=== PATIENT | female | born 1985 | race Caucasian/White ===

== ENCOUNTER 2020-08-10 10:38 | Emergency (ER) | payer OTHER, SELFPAY ==
--- NOTE | 2020-08-10 10:54 | PC.NURSE ---
following registration, prior to triage, pt informed staff she just spoke to her obgyn who instructed her to go to er. stated she does not want to be seen here and would go to er, left at that time.
== END 2020-08-10 10:40 | disposition left against medical advice (07) ==
LOC: EXPBETH 10:45
PROVIDERS: Emergency Provider Nurse Practitioner Family
DX: Z53.21 Procedure and treatment not carried out due to patient leaving prior to being seen by health care provider (principal)
CPT/HCPCS: 99199

== ENCOUNTER 2021-03-31 12:44 | Emergency (ER) | payer OTHER, SELFPAY ==
[2021-03-31 12:48] VITALS: BP 125/63; PULSE 88; RESP 18; TEMP 37.1; O2SAT 99
--- NOTE | 2021-03-31 13:06 | ED.URI ---
HPI - URI/Sore Throat General Chief Complaint: Upper Respiratory Infection Stated Complaint: sore throat Source: patient and RN notes reviewed Limitations: no limitations History of Present Illness HPI Narrative: The obese patient-- a smoker/nondrinker-- has 1/2-week history of sore throat, definite hoarseness and mild nonproductive cough. No fever measured, earache; Covid vaccination , loss of taste or smell, S OB, vomiting/diarrhea, CP Related Data Allergies Allergy/AdvReac Type Severity Reaction Status Date / Time No Known Allergies Allergy Verified 03/31/21 13:01 Review of Systems Review of Systems: Narrative: General/Constitutional: No weight loss,fever Eyes: N0: Redness,discharge Ears/Nose/Throat: No: Epistaxis,ear discharge Respiratory: Denies: Hemoptysis Gastrointestinal: No Vomiting, Bleeding-rectal Skin: No Lumps, eruption Neurologic: No Focal Weakness,Sz Hematologic: Denies: Petechiae/Purpura Psychiatric: No: Suicida ideationl All Other Systems: Reviewed and Negative PMFSH Comments At time of signature, agree with nursing past medical, surgical, social and family history. There is no relevant family history pertinent to the presenting complaint Exam Narrative: Exam Narrative: General Appearance: Well appearing, Well nourished EYE: PERRLA, Conjunctiva clear Ears: Auditory canal normal, TM normal Nose: Rhinorrhea, Mucousal erythema Mouth/Throat: MM moist, Uvula midline, Pharyngeal erythema Neck: Supple, No adenopathy Respiratory: No respiratory distress, Breath sounds equal, Clear to auscultation Cardiovascular: RRR, No JVD Musculoskeletal: Non tender, Normal strength Skin: Warm, Dry Neurological: A&O x3, CN II-XII intact Psychiatric: Normal mood, Normal affect Course Vital Signs Vital signs: Vital Signs Temperature 98.8 F 03/31/21 12:48 Pulse Rate 88 03/31/21 12:48 Respiratory Rate 18 03/31/21 12:48 Blood Pressure 125/63 03/31/21 12:48 Pulse Oximetry 99 03/31/21 12:48 Temperature 98.8 F 03/31/21 12:48 Pulse Rate 88 03/31/21 12:48 Respiratory Rate 18 03/31/21 12:48 Blood Pressure 125/63 03/31/21 12:48 Pulse Oximetry 99 03/31/21 12:48 Discharge Plan Discharge Clinical Impression: Cough, Odynophagia Patient Disposition: Home, Self-Care Condition: Stable Instructions: Acute Bronchitis (ED) Prescriptions: New azithromycin 250 mg tablet See Rx Instructions .ROUTE .COMPLEX Qty: 6 RF: 0 benzonatate [Tessalon Perles] 100 mg capsule 100 mg PO TID Qty: 20 RF: 1 lidocaine HCl [Lidocaine Viscous] 2 % solution 5 ml MUCOUS MEM QID PRN (Reason: pain) Qty: 100 RF: 0 codeine-guaifenesin 10-100 mg/5 mL liquid 7.5 ml PO Q6H PRN (Reason: cough) Qty: 118 RF: 0 Follow-up/Referrals: PHYSICIAN,MATERIALS MANAGEMENT MANAGER [Primary Care Provider] -
== END 2021-03-31 13:17 | disposition home or self-care (01) ==
PROVIDERS: Emergency Provider Emergency Medicine
DX: R05 Cough (principal); R13.10 Dysphagia, unspecified
CPT/HCPCS: 87081; 87880; 99213; G0463

== ENCOUNTER 2021-05-31 19:31 | Emergency (ER) | payer OTHER, SELFPAY ==
[2021-05-31 19:42] VITALS: BP 132/79; PULSE 113; RESP 20; TEMP 36.8; O2SAT 100
--- NOTE | 2021-05-31 19:56 | ED.EYEPROB ---
HPI - Eye Problem General Chief complaint: Eye Problems Stated complaint: right eye Source: patient Mode of arrival: ambulatory Limitations: no limitations History of Present Illness HPI Narrative: Patient is a 35-year-old female who presents complaining of right eye pain. Patient reports getting seasonings often eye last p.m. She reports increased irritation and foreign body sensation today. She denies taking any okus-zdo-sggwbec medications for pain prior to arrival. chief complaint: eye pain Related Data Allergies Allergy/AdvReac Type Severity Reaction Status Date / Time No Known Allergies Allergy Verified 03/31/21 13:01 Review of Systems Review of Systems: CONSTITUTIONAL: Denies fever, chills, or sweats. EYES: Reports right eye pain ENT: Denies rhinorrhea, congestion, sore throat, or otalgia. CARDIOVASCULAR: Denies chest pain, palpitations, or edema. RESPIRATORY: Denies cough or dyspnea. GASTROINTESTINAL: Denies abdominal pain, nausea, vomiting, or diarrhea. GENITOURINARY: Denies dysuria or hematuria. SKIN: Denies rash or itching. MUSCULOSKELETAL: Denies back pain, joint pain, or myalgia. NEUROLOGIC: Denies headache, numbness, dizziness, or weakness. PSYCHIATRIC: Denies anxiety or depression. [facility] Social History Social History (Updated 05/31/21 @ 19:58 by RODNEY Nicholas) Smoking status: Current every day smoker Tobacco type: cigarettes Alcohol intake: current Alcohol use details: Occasional Substance use: never Living arrangements: with family Occupation/Education: occupation Comments At the time of signature, I have reviewed and agree with nursing past medical, surgical, social, and family history unless otherwise noted. Please see nursing chart for further information. There is no relevant family history pertinent to the presenting complaint. Exam Narrative: GENERAL: Well-appearing, well-nourished, and in no acute distress. HEAD: Normocephalic, atraumatic. EYES: EOMI. No redness or drainage. Right conjunctiva and sclera injected. Photophobia noted, clear drainage ENT: Mucous membranes pink and moist. CHEST: No respiratory distress. HEART: Regular rate and rhythm. EXTREMITIES: Normal range of motion. No edema. SKIN: Warm, dry, no rash. NEURO: No focal deficits. Alert and oriented x3. Gait steady. PSYCH: Normal affect. No signs of depression or anxiety. Course Vital Signs Vital signs: Vital Signs Temperature 36.8 C 05/31/21 19:42 Pulse Rate 113 H 05/31/21 19:42 Respiratory Rate 20 05/31/21 19:42 Blood Pressure 132/79 05/31/21 19:42 Pulse Oximetry 100 05/31/21 19:42 Temperature 36.8 C 05/31/21 19:42 Pulse Rate 113 H 05/31/21 19:42 Respiratory Rate 20 05/31/21 19:42 Blood Pressure 132/79 05/31/21 19:42 Pulse Oximetry 100 05/31/21 19:42 Reviewed-patient is informed that they may have pre-hypertension or hypertension based on a blood pressure reading. I recommend the patient call the primary care provider listed on their discharge instructions or a physician of their choice this week to arrange follow-up for further evaluation of possible pre-hypertension or hypertension. Procedures Other Procedure Procedure 1: Other Procedure: Right eye was anesthetized with 1 drop of tetracaine and anesthesia was achieved. The eye was flushed with eyewash. Lid was inverted and examined. Moistened Q-tip was used to sweep underneath the upper eyelid with no foreign bodies resulting. Cornea was dyed with fluorescein and 2 abrasions or ulcerations were noted. Patient tolerated procedure well. MDM - Eye Problem MDM Narrative Medical decision making narrative: Visual acuity is within normal limits. Patient's right eye noted to have 2 corneal abrasions, discussed with patient pain relief as well as using topical ointment as directed. Patient agrees with plan of care. Patient is stable for discharge home with outpatient follow-up as needed. Cri
== END 2021-05-31 20:06 | disposition home or self-care (01) ==
PROVIDERS: Emergency Provider Nurse Practitioner
DX: S05.01XA Injury of conjunctiva and corneal abrasion without foreign body, right eye, initial encounter (principal); X58.XXXA Exposure to other specified factors, initial encounter; F17.210 Nicotine dependence, cigarettes, uncomplicated
CPT/HCPCS: 99213; A9270; G0463

== ENCOUNTER 2021-06-30 11:46 | Emergency (ER) | payer OTHER, SELFPAY ==
--- NOTE | 2021-06-30 11:52 | ED.URI ---
HPI - URI/Sore Throat General Chief Complaint: Upper Respiratory Infection Stated Complaint: Sore Throat/ Fever Time Seen by Provider: 06/30/21 11:53 Source: patient and RN notes reviewed History of Present Illness HPI Narrative: Patient is a 35-year-old female who presents the urgent care with complaints of sore throat, difficulty swallowing, body aches and fever. Patient states that started yesterday after her daughter was diagnosed with strep a couple days ago. Patient states that she is taken ibuprofen for her symptoms. No other acute complaints. No acute distress noted. Patient read the plan of care. Some parts of this dictation were generated by voice recognition software and may contain typographical and/or grammatical inaccuracies. Related Data Allergies Allergy/AdvReac Type Severity Reaction Status Date / Time No Known Allergies Allergy Verified 03/31/21 13:01 Review of Systems Review of Systems: CONSTITUTIONAL: Reports a fever EYES: Denies visual changes, redness, or discharge. ENT: Denies rhinorrhea, congestion, otalgia. reports of sore throat CARDIOVASCULAR: Denies chest pain, palpitations, or edema. RESPIRATORY: Denies cough or dyspnea. GASTROINTESTINAL: Denies abdominal pain, nausea, vomiting, or diarrhea. GENITOURINARY: Denies dysuria or hematuria. SKIN: Denies rash or itching. MUSCULOSKELETAL: Denies back pain, joint pain. Reports of body aches NEUROLOGIC: Denies headache, numbness, or weakness. All other systems reviewed are negative, except as documented in HPI. [facility] Social History Social History (Updated 05/31/21 @ 19:58 by RODNEY Nicholas) Smoking status: Current every day smoker Tobacco type: cigarettes Alcohol intake: current Alcohol use details: Occasional Substance use: never Comments At the time of my signature, I reviewed and agree with the nursing past medical, surgical, social, and family history. There is no relevant family history pertinent to the patient complaint. Exam Narrative: GENERAL: This is a well-nourished, well-developed patient, in no apparent distress. HEAD: normocephalic, atraumatic. EYES: PERRL. Sclera clear/white. Vision is grossly intact. EARS: External ears normal, auditory canals clear and without drainage, TMs normal without perforation. Hearing grossly intact. NOSE: External nose normal with no obvious nasal discharge, nares without redness, no rhinorrhea. THROAT: Mucous membranes moist, moderate erythema to the posterior oropharynx with bilateral exudate and mild to moderate tonsillar edema/erythema. Moderate postnasal drainage. NECK: Neck supple CARDIOVASCULAR: Regular rate and rhythm without murmurs, gallops, or rubs. RESPIRATORY: Clear to auscultation. Breath sounds equal bilaterally. No wheezes, rales, or rhonchi. SKIN: warm, intact with no suspicious lesions or rash, good texture and turgor. NEURO: awake, alert, and oriented to person, place and time. There were no obvious focal neurologic abnormalities. EXTREMITIES: No clubbing, cyanosis, or edema. Course Vital Signs Vital signs: Vital Signs Temperature 98.3 F 06/30/21 11:53 Pulse Rate 112 H 06/30/21 11:53 Respiratory Rate 16 06/30/21 11:53 Blood Pressure 106/67 06/30/21 11:53 Pulse Oximetry 99 06/30/21 11:53 Temperature 98.3 F 06/30/21 11:53 Pulse Rate 112 H 06/30/21 11:53 Respiratory Rate 16 06/30/21 11:53 Blood Pressure 106/67 06/30/21 11:53 Pulse Oximetry 99 06/30/21 11:53 Reviewed MDM - URI/Sore Throat MDM Narrative Medical decision making narrative: Reviewed lab results with the patient. She is aware that strep swab was positive. Advised the patient to complete oral antibiotic regimen as prescribed. Make sure to eat and drink with the medication. Use Tylenol/ibuprofen as needed for fever, body aches and pain. Increase your water intake. Change her toothbrush within 2 to 3 days. Follow-up with your PCP within 3 to 5 days or for worsening
[2021-06-30 11:53] VITALS: BP 106/67; PULSE 112; RESP 16; TEMP 36.8; O2SAT 99
== END 2021-06-30 12:07 | disposition home or self-care (01) ==
PROVIDERS: Emergency Provider Nurse Practitioner Family
DX: J02.0 Streptococcal pharyngitis (principal); F17.210 Nicotine dependence, cigarettes, uncomplicated
CPT/HCPCS: 87880; 99213; G0463

== ENCOUNTER 2024-06-09 17:52 | Emergency (ER) | payer OTHER, SELFPAY ==
[2024-06-09 18:12] VITALS: BP 120/89; PULSE 128; RESP 20; TEMP 36.6; O2SAT 99
--- NOTE | 2024-06-09 19:18 | ED.URI ---
HPI - URI/Sore Throat General Chief Complaint: Upper Respiratory Infection Stated Complaint: cough/ SOB Time Seen by Provider: 06/09/24 18:50 Source: patient, RN notes reviewed and old records reviewed Mode of arrival: ambulatory Limitations: no limitations History of Present Illness HPI Narrative: 38 year old female presents to [facility] care with complaints of 4 day history of cough with some shortness of breath, has felt a little feverish and has noted occasional wheezes. Patient reports that she has some upper back discomfort with her cough, denies any sore throat or any ear pain, states some headache. Patient reports that she has missed 2 days of work and needs work note. Patient also states that she has a little redness and itch to her back and her left arm and requesting ointment of triamcinolone. Patient reports history of past bronchitis has not taken any OTC medication for her symptoms Patient reports had a negative COVID yesterday. MD elicited complaint: cough and other (states some dyspnea,headache, little feverish, some wheezes) Onset (ago): day(s) (4) Consistency: progressively worsening Pain scale (0-10): 3 Description of mucous: clear Treatments prior to arrival: none Related Data Allergies Allergy/AdvReac Type Severity Reaction Status Date / Time No Known Allergies Allergy Verified 06/09/24 18:15 Review of Systems Review of Systems: CONSTITUTIONAL: report malaise,no chills, sweats, reports felt a little feverish. EYES: Denies visual changes, redness, or discharge. ENT: Reports rhinorrhea, congestion, sinus pain, no otalgia and nosore throat. CARDIOVASCULAR: Denies chest pain, palpitations, or edema. RESPIRATORY: Reports cough.? states some dyspnea with cough and exertion, reports some pain to upper back with cough. GASTROINTESTINAL: Denies abdominal pain, nausea, vomiting, diarrhea SKIN: reports some redness and itching on left arm and back no rash noted. MUSCULOSKELETAL: Denies myalgia. NEUROLOGIC: reports headache. All systems reviewed & are unremarkable except as noted in HPI and below PMFSH Past Medical History Medical History Bronchitis Surgical History Surgical History History of back surgery Social History Social History Smoking status: Current some day smoker Tobacco type: cigarettes and e-cigarettes/vaping Alcohol intake: current Alcohol use details: Occasional Substance use: never Living arrangements: with family Occupation/Education: occupation Comments At time of signature, agree with nursing past medical, surgical, social and family history. There is no relevant family history pertinent to the presenting complaint Exam Narrative: GENERAL: Well-appearing, well-nourished, and in no acute distress. HEAD: Normocephalic EYES: PERRLA, conjunctivae clear ENT: Nares clear, turbinates edematous and erythematous, clear discharge. Mucous membranes moist. TM pearly lucero with dull light reflex bilaterally; no tragal tenderness. Oropharynx erythematous without lesions. Tonsils not enlarged and without exudate, no drooling, no hoarseness, no trismus, uvula midline.some post nasal discharge NECK: Supple. No lymphadenopathy CHEST: decreased breath sounds on auscultation, breath sounds equal. No wheezing, rhonchi, rales, or stridor. No respiratory distress, speaks in full sentences.dry hacking cough noted SAO2 99% on room air, no tachypnea noted HEART: Regular rate and rhythm.tachy, No murmur heard. SKIN: Warm, dry, no rash noted states itchy on left arm and back. NEURO: Alert and oriented x3. anxious PSYCH: Normal mood and affect Course Course Emergency Course: Patient is aware of diagnosis, understands and agrees to treatment plan.? Anticipatory guidance given.? Patient agrees to follow
== END 2024-06-09 19:30 | disposition home or self-care (01) ==
PROVIDERS: Emergency Provider Registered Nurse
DX: J06.9 Acute upper respiratory infection, unspecified (principal); F17.210 Nicotine dependence, cigarettes, uncomplicated; F17.290 Nicotine dependence, other tobacco product, uncomplicated
CPT/HCPCS: 99213; G0463

== ENCOUNTER 2025-01-17 13:26 | Emergency (ER) | payer OTHER, SELFPAY ==
--- OUTSIDE RECORDS SUMMARY | 2025-01-17 13:29 | XMS_ITS | Encounter Summary ---
Author Organization [facility] Healthcare Address [address] [place] [address] Care Team Providers Care Nuclear Engineer Name Role Phone No, Physician Primary Care Provider [phone] Encounter Details Date Type Department Care Team (Late st Contact Info) Description 11/20/2019 Telephone [facility] Diagnostic Imaging [address] [place] [address] Teresita Odom MD [address] [place] [address] [place] [id number] Social History Tobacco Use Types Packs/Day Years Used Date Smoking Tobacco: Every Day Cigarettes 0.5 18 Smokeless Tobacco: Never Alcohol Use Standard Drinks/Week Comments No 0 (1 standard drink = 0.6 oz pur e alcohol) Comments Yes Sex and Gender Information Value Date Recorded Sex Assigned at Not on file Legal Sex Female 12:34 PM CDT Gender Identity Not on file Sexual Orientation Not on file documented as of this encounter Plan of Treatment Not on file documented as of this encounter Visit Diagnoses Not on filedocumented in this encounter Additional Health Concerns Infection Onset Date Last Indicated Resolved Time COVID: Suspected 04/14/2022 04/14/2022 04/14/2022 5:11 PM CDT COVID19 04/14/2022 04/14/2022 04/24/2022 3:05 AM CDT documented as of this encounter Care Teams Nuclear Engineer Relationship Specialty Start Date End Date No, Physician PCP - General 08/02/18 documented as of this encounter
--- OUTSIDE RECORDS SUMMARY | 2025-01-17 13:29 | XMS_ITS | Clinical Summary ---
Author Organization [facility] Address [address] [place] [address] Phone Care Team Providers Care Ic Engineer Name Role Phone Provider, None Primary Care Provider Unavailabl e Allergies No known active allergies Medications naproxen (NAPROSYN) 500 MG Tablet Take 1 Tab by mouth 2 times daily (with meals). 30 Tab 9 Active Additional Information Patient not taking.Reported on 08/28/2019 cyclobenzaprine (FLEXERIL) 10 MG Tablet Take 1 Tab by mouth 3 times daily as needed for Muscle spasms. 20 Tab 9 Active Additional Information Patient not taking.Reported on 08/28/2019 albuterol 108 (90 Base) MCG/ACT Aerosol Solution take 2 Puffs by inhalation every 6 hours as needed for Wheezing or Cough. 1 Inhaler 9 Active traMADol (ULTRAM) 50 MG Tablet Take 1 Tab by mouth every 6 hours as needed for Moderate or more severe pain. 15 Tab 9 Active Additional Information Patient not taking.Reported on 08/28/2019 Active Problems No known active problems Family History Medical History Relation Name Comments Diabetes Father Hypertension Father Breast Cancer Maternal Grandmother Heart Disease Mother Hypertension Mother Relation Name Status Comments Father Maternal Grandmother Mother Social History Tobacco Use Types Packs/Day Years Used Date Smoking Tobacco: Every Day Cigarettes 0.5 15 Smokeless Tobacco: Never Tobacco Cessation:Ready to Q uit: No; Counseling Given: Yes Alcohol Use Standard Drinks/Week Comments No 0 (1 standard drink = 0.6 oz pur e alcohol) Sexually Active Control Partners Comments Yes Male Comments Unknown Sex and Gender Information Value Date Recorded Sex Assigned at Not on file Legal Sex Female 10:32 PM CDT Gender Identity Not on file Sexual Orientation Not on file Last Filed Vital Signs Vital Sign Reading Time Taken Comments Blood Pressure 118/75 04/06/2022 2:54 AM CDT Pulse 107 04/06/2022 2:54 AM CDT Temperature 36.8 C (98.2 F) 04/06/2022 12:51 AM CDT Respiratory Rate 19 04/06/2022 2:54 AM CDT Oxygen Saturation 94% 04/06/2022 2:54 AM CDT Inhaled Oxygen Concentration - - Weight 90.7 kg (200 lb) 04/06/2022 12:51 AM CDT Height 172.7 cm (5' 8 ) 04/06/2022 12:51 AM CDT Body Mass Index 30.41 04/06/2022 12:51 AM CDT Plan of Treatment Health Maintenance Due Date Last Done Comments Hepatitis C Virus (HCV) Screening 1985 TdaP Immunization 1985 Hepatitis B Immunization (1 of 3 - 19+ 3-dose series) 2004 Influenza Immunization (#1) 2024 SARS-COV-2 Immunization ( - 2023- season) 2024 Respiratory Syncytial Virus (RSV) Immunization (Adult) (1 - 1-dose 75+ series) 2060 Meningococcal Immunization (ACWY) Aged Out No longer eligible based on patient's age to complete this topic Pneumococcal Immunization Combined Aged Out No longer eligible based on patient's age to complete this topic Rotavirus Immunization Aged Out No lo nger eligible based on patient's age to complete this topic Insurance MEDICAID [employer] Advance Directives * Full Code (Latest Code Status on File) Date Activated Date Inactivated Comments 04/15/2018 5:34 PM 04/15/2018 9:52 PM CPR-Full Sharad atment: FULL ARREST: Attempt Resuscitation/CPR wit intubation and mechanical ventilation. PRE-ARREST: Use entire range of life support measures to stabilize the patient. Care Teams Ic Engineer Relationship Specialty Start Date End Date Provider, None [place] PCP - General 12/20/17
--- OUTSIDE RECORDS SUMMARY | 2025-01-17 13:29 | XMS_ITS ---
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 * Medical History: Objective: * Vitals: Assessment: Plan: * Treatment: * * Electronic signature of Corazon Martell on 01/17/2025 at 01:29 PM CDT Sign off status: Pending * Provider: ANTON Skinner, MACHINE ADJUSTER HELPER, PMHNP-BC Date: 0 11/04/2024 Generated for Printing/Faxing/eTransmitting on: 0 01/17/2025 01:29 PM CDT
[2025-01-17 13:30] VITALS: BP 127/87; PULSE 117; RESP 18; TEMP 36.5; O2SAT 98
--- OUTSIDE RECORDS SUMMARY | 2025-01-17 13:30 | XMS_ITS | Clinical Summary ---
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 antepartum URINE CULTURE Routine 11/11/2024 4:59 PM WELDING SPECIALIST Supervision of other normal , antepartum N. GONORRHOEAE/C. TRACHOMATIS AMPLIFICATION Routine 11/11/2024 4:59 PM WELDING SPECIALIST Supervision of other normal , antepartum PAP AND HIGH RISK HPV, REFLEX TO GENOTYPING Routine 11/11/2024 9:04 AM WELDING SPECIALIST Supervision of other normal , antepartum US OB UNDER 14 WEEKS Schedule Routine, Read Routine (OP Routine) 11/10/2024 3:33 PM WELDING SPECIALIST Encounter to establish gestational age using ultrasound from Last 3 Months Results * POCT OB urine short dip (glucose, protein, ketones) (01/12/2025 9:56 AM CDT) Glucose, ur, POC Negative Negative MG/DL Protein, ur, POC Negative Negative Ketones, ur, POC Negative Negative Lot Number [id number] Urine 01/12/2025 9:56 AM CDT Melanie Newman NP POINT OF CARE TEST ORDERABL ES Final Result * Drugs of Abuse Screen, Urine with Reflex Confirmation (12/15/2024 11:09 AM CDT) Amphetamine, ur Not Detected CutOff 500ng/mL Comment: Interpretive Data - Amphetamines: Samples containing greater than 500 ng/mL d-methamphetamine or other cross-reacting amphetamine compounds are reported as positive. Amphetamine immunoassays are subject to significant false positive rates due to cross-reactivity of non-amphetamine drugs. Confirmatory testing required for definitive results. Current Interpretive Data was last reviewed 2023. Barbiturates, ur Not Detected CutOff 200ng/mL MEGAN Comment: Interpretive Data - Barbiturates: Samples containing greater than 200 ng/mL secobarbital or other cross-reacting barbiturate compounds are reported as positive. False positive and false negative results are possible. Confirmatory testing required for definitive results. Current Interpretive Data was last reviewed 2023. Benzodiazepines, ur Not Detected CutOff 100ng/mL MEGAN Comment: Interpretive Data - Benzodiazepines: Samples containing greater than 100 ng/mL nordiazepam or other cross-reacting compounds are reported as positive. False positive and false negative results are possible. Confirmatory testing required for definitive results. Current Interpretive Data was last reviewed 2023. Cannabinoids, ur Not Detected CutOff 50 ng/mL MEGAN Comment: Interpretive Data - Cannabinoids: Samples containing greater than 50 ng/mL delta-9 THC -COOH or other cross- reacting compounds are reported as positive. False positive and false negative results are possible. Confirmatory testing required for definitive results. Current Interpretive Data was last reviewed 2023. Cocaine, ur Not Detected CutOff 150ng/mL [facility] Comment: Interpretive Data - Cocaine: Samples containing greater than 150 ng/mL benzoylecgonine or other cross- reacting compounds are reported as positive. False positive and false negative results are possible. Confirmatory testing required for definitive results. Current Interpretive Data was last reviewed 2023. Fentanyl, Ur Not Detected CutOff 5 ng/mL [facility] Comment: Interpretive Data - Fentanyl: Samples containing greater than 5 ng/mL norfentanyl, fentanyl, or other cross-reacting fentanyl compounds are reported as positive. False positive and false negative results are possible. Confirmatory testing required for definitive results. Current Interpretive Data was last reviewed 2024. Methadone, ur Not Detected CutOff 300ng/mL [facility] Comment: Interpretive Data - Methadone: Samples containing greater than 300 ng/mL d,l-methadone or other cross-reacting compounds are reported as positive. False positive and false negative results are possible. Confirmatory testing required for definitive results. Current Interpretive Data was last reviewed 2023. Opiates, ur Not Detected CutOff 300ng/mL [facility] Comment: Interpretive Data - Opiates: Samples containing greater than 300 ng/mL morphine or other cross-reacting compounds are reported as positive. False positive and false negative results are possible. Confirmatory testing required for definitive results. Current Interpretive Data was last reviewed 2023. Oxycodone, ur Not Detected CutOff 100ng/mL [facility] Comment: Interpretive Data - Oxycodone: Samples containing greater than 100 ng/mL oxycodone or other cross-reacting compounds are reported as positive. False positive and false negative results are possible. Confirmatory testing required for definitive results. Current Interpretive Data was last reviewed 2023. Phencyclidine, ur Not Detected CutOff 25 ng/mL [facility] Comment: Interpretive Data - Phencyclidine: Samples containing greater than 25 ng/mL phencyclidine or other cross-reacting compounds are reported as positive. False positive and false negative results are possible. Confirmatory testing required for definitive results. Current Interpretive Data was last reviewed 2023. Urine Creatinine 32 mg/dL [facility] Comment: Interpretive Data Urine Creatinine: < 10 mg/dL is extremely dilute = or > 10 but < 20 mg/dL is dilute = or > 20 mg/dL is normal Current Interpretive Data was last revised on 2017. Urine 12/15/2024 11:0 9 AM CDT 12/15/2024 8:16 PM CDT Narrative MEGAN - 12/15/2024 9:01 PM CDT Drug of Abuse screening is performed by immunoassay for medical purposes only. This is not to be used for Pain Management purposes. If Detected, confirmation testing will be performed for Amphetamines, Cocaine, Fentanyl, Methadone, Opiates, Oxycodone or Phencyclidine. Lotus Christiansen MD LAB URINE ORDERABLE S Final Result [facility]GAN [id number] Department [place] [address] * POCT OB urine short dip (glucose, protein, ketones) (12/15/2024 11:03 AM CDT) Glucose, ur, POC Negative Negative MG/DL Protein, ur, POC Negative Negative Ketones, ur, POC Negative Negative Lot Number [id number] Urine 12/15/2024 11:0 3 AM CDT Lotus Christiansen MD POINT OF CARE TEST ORDERABLES Final Result * (ABNORMAL) Differential, auto (12/11/2024 10:17 AM CDT) Neutrophil abs 8.0(H) 1.5 - 6.5 K/cumm Imm gran abs 0.1 0.0 - 0.1 K/cumm [facility] ([place]) Lymphocyte abs 2.3 0.8 - 3.3 K/cumm [facility] ([place]) Monocyte abs 0.5 0.2 - 0.8 K/cumm [facility] ([place]) Eosinophil abs 0.2 0.0 - 0.5 K/cumm [facility] ([place]) Basophil abs 0.0 0.0 - 0.1 K/cumm [facility] ([place]) Neutrophil pct 72.3 % [facility] ([place]) Comment: Interpretive Data Percent cell count reference ranges are not reported, since discordance with absolute values may lead to misinterpretation of CBC data. Current Interpretive Data was last revised on 2017. Imm gran pct 0.5 % [facility] ([place]) Comment: Interpretive Data Percent cell count reference ranges are not reported, since discordance with absolute values may lead to misinterpretation of CBC data. Current Interpretive Data was last revised on 2017. Lymphocyte pct 20.5 % [facility] ([place]) Comment: Interpretive Data Percent cell count reference ranges are not reported, since discordance with absolute values may lead to misinterpretation of CBC data. Current Interpretive Data was last revised on 2017. Monocyte pct 4.5 % [facility] ([place]) Comment: Interpretive Data Percent cell count reference ranges are not reported, since discordance with absolute values may lead to misinterpretation of CBC data. Current Interpretive Data was last revised on 2017. Eosinophil pct 1.9 % [facility] ([place]) Comment: Interpretive Data Percent cell count reference ranges are not reported, since discordance with absolute values may lead to misinterpretation of CBC data. Current Interpretive Data was last revised on 2017. Basophil pct 0.3 % [facility] ([place]) Comment: Interpretive Data Percent cell count reference ranges are not reported, since discordance with absolute values may lead to misinterpretation of CBC data. Current Interpretive Data was last revised on 2017. Blood 12/11/2024 10:1 7 AM CDT 12/11/2024 1:50 PM CDT us Lotus Christiansen MD LAB BLOOD ORDERABLE S Final Result [facility] ([place]) 1 [facility] Department of Laboratories [place], [place] [id number] * HIV 1/2 Antibody plus p24 Antigen Blood (12/11/2024 10:17 AM CDT) HIV 1/2 ab + p24 ag Nonreactive Nonreactive Comment: Nonreactive for HIV-1 antigen and HIV-1/HIV-2 antibodies. No laboratory evidence of HIV infection. If acute HIV infection is suspected, consider testing for HIV-1 RNA. Testing performed by: [facility], [address] [place] [address], [place]., [address] Blood 12/11/2024 10:1 7 AM CDT 12/11/2024 5:15 PM CDT Lotus Christiansen MD LAB MICROBIOLOGY - GENERAL ORDERABLES Final Result [facility] ([place]) 1 [facility] Department [place] [address] * (ABNORMAL) Urinalysis reflex to microscopic (12/11/2024 10:17 AM CDT) Color, ur Yellow Yellow Clarity, ur Turbid(A) Clear [facility] ([place]) Specific gravity, ur 1.016 1.003 - 1.030 [facility] ([place]) pH, urine 6.5 [facility] ([place]) Comment: Interpretive Data U rine pH is affected by diet, medications, systemic acid-base disturbances, and renal tubular function. pH may affect urinary stone formation. For example, urine pH below 6.0 may help reduce the tendency for calcium phosphate stones and pH greater than 6.0 may reduce the tendency for uric acid stone formation. Source: [facility] Current Interpretive Data was last revised on 2017 Protein, ur ql Negative Negative [facility] ([place]) Glucose, ur ql Negative Negative [facility] ([place]) Ketones, ur Negative Negative [facility] ([place]) Bilirubin, ur Negative Negative [facility] ([place]) Blood, ur Negative Negative [facility] ([place]) Urobilinogen, ur <2.0 <2.0 mg/dL [facility] ([place]) Nitrite, ur Negative Negative [facility] ([place]) Leukocyte esterase, ur Negative Negative [facility] ([place]) UA reflex comment Reflex conditions for microscopic UA not met. [facility] ([place]) Urine 12/11/2024 10:1 7 AM CDT 12/11/2024 1:50 PM CDT us Lotus Christiansen MD LAB URINE ORDERABLE S Final Result [facility] ([place]) 1 [facility] [address] * (ABNORMAL) CBC with auto differential (12/11/2024 10:17 AM CDT) WBC 11.1(H) 3.8 - 9.9 K/cumm Hgb 12.6 11.9 - 15.5 g/dL [facility] ([place]) Hct 39.2 35.6 - 45.5 % [facility] ([place]) Plt 289 150 - 400 K/cumm [facility] ([place]) MPV 10.5 9.1 - 12.3 fL [facility] ([place]) RBC 4.42 3.90 - 5.20 M/cumm [facility] ([place]) MCV 88.7 81.3 - 96.4 fL [facility] ([place]) MCH 28.5 27.1 - 33.3 pg [facility] ([place]) MCHC 32.1(L) 32.3 - 35.7 g/dL [facility] ([place]) RDW CV 13.4 11.1 - 14.9 % [facility] ([place]) RDW SD 44.0 35.7 - 48.1 fL [facility] ([place]) NRBC abs 0.00 0.00 - 0.01 K/cumm [facility] ([place]) Blood 12/11/2024 10:1 7 AM CDT 12/11/2024 1:50 PM CDT us Lotus Christiansen MD LAB BLOOD ORDERABLE S Final Result [facility]GAN [facility]ARTEL ([place]) 1 [facility] [place] [address] * Hepatitis C antibody Blood (12/11/2024 10:17 AM CDT) Hep C Ab Nonreactive Nonreactive Comment: Interpretive Data Nonreactive: Antibodies to HCV not detected. Does NOT exclude the possibility of recent exposure to HCV. Equivocal: Equivocal for HCV antibodies. Supplemental molecular testing will be automatically performed to determine infection status in accordance with current CDC screening recommendations. Reactive: Positive for HCV antibodies. This may represent current or past HCV infection. Supplemental molecular testing will be automatically performed to determine current infection status in accordance with current CDC screening recommendations. Interpretive data was last revised on 2019. Testing performed by: [facility], [address] [place] [address], [place]., [address] Blood 12/11/2024 10:1 7 AM CDT 12/11/2024 5:14 PM CDT us Lotus Christiansen MD LAB MICROBIOLOGY - GENERAL ORDERABLES Final Result Performing Organization Address City/State/[facility] Co de Phone Number MEGAN MARTEL ([place]) 1 [facility] [place] [address] * ABO/Rh (12/11/2024 10:17 AM CDT) ABO/Rh O Positive Blood 12/11/2024 10:1 7 AM CDT 12/11/2024 1:50 PM CDT Narrative MEGAN MARTEL ([place]) - 12/11/2024 2:52 PM CDT Has the patient had Daratumumab or Isatuximab in the past 6 months?->Unknown Witnessed by Arlene Bah Lotus Christiansen MD LAB BLOOD BANK TEST ORDERABLES Final Result Performing Organization Address City/[facility] Co de Phone Number MEGAN MARTEL ([place]) 1 [facility] [employer] [place] [address] * (ABNORMAL) Vitamin D 25 hydroxy (12/11/2024 10:17 AM CDT) Vitamin D 25-OH 19(L) 30 - 80 ng/mL Blood 12/11/2024 10:1 7 AM CDT 12/11/2024 1:50 PM CDT Lotus Christiansen MD LAB BLOOD ORDERABLE S Final Result Performing Organization Address City/[facility] Co de Phone Number [facility] ([place]) 1 [facility] [place] [address] * (ABNORMAL) Rubella IgG antibody Blood (12/11/2024 10:17 AM CDT) Rubella IgG Nonreactiv e(A) Comment: Nonreactive: No detectable antibody to rubella. Such individuals are presumed to be uninfected with rubella and to be susceptible to primary infection. Testing performed by: [facility], [address] [place] [address]., [address] Blood 12/11/2024 10:1 7 AM CDT 12/11/2024 4:06 PM CDT us Lotus Christiansen MD LAB MICROBIOLOGY - GENERAL ORDERABLES Final Result Performing Organization Address [facility] Co de Phone Number [facility] ([place]) [address] [place] [address] * RPR Blood (12/11/2024 10:17 AM CDT) Pathologist [facility] RPR Nonreactive Nonreactive Comment:Testing performed by : [facility], [address] [place] [address]., [address] Blood 12/11/2024 10:1 7 AM CDT 12/11/2024 5:14 PM CDT us Lotus Christiansen MD LAB MICROBIOLOGY - GENERAL ORDERABLES Final Result Performing Organization Address City/[facility] Co de Phone Number [facility] ([place]) [address] [place] [address] * Hepatitis B Surface Antigen Blood (12/11/2024 10:17 AM CDT) HepBsAg Nonreactive Nonreactive Comment:Testing performed by : [address] [address] Blood 12/11/2024 10:1 7 AM CDT 12/11/2024 5:14 PM CDT Lotus Christiansen MD LAB MICROBIOLOGY - GENERAL ORDERABLES Final Result MEGAN MARTEL ([place]) 1 [facility] [address] * Antibody screen (12/11/2024 10:17 AM CDT) Erin, indirect, Gel Interpretation Negative ABSC Blood 12/11/2024 10:1 7 AM CDT 12/11/2024 1:50 PM CDT Narrative MEGAN MARTEL ([place]) - 12/11/2024 2:52 PM CDT Has the patient had Daratumumab or Isatuximab in the past 6 months?->Unknown Lotus Christiansen MD LAB BLOOD BANK TEST ORDERABLES Final Result Performing Organization Address [place]/[facility]/ZIP Co de Phone Number MEGAN MARTEL ([place]) 1 [facility] [place] [address] * Urine culture Urine, clean voided (12/11/2024 10:17 AM CDT) Report Final Report: Less than 100,000 colonies/mL (clinically insignificant growth based on current clinical standards) Comment:Testing performed by : [facility], [address] [place] [address] Organism (CLINICALLY INSIGNIFICANT GROWTH MEGAN MARTEL ([place]ARR[place]) Urine, clean voided 12/11/2024 10:17 AM CDT 12/11/2024 5:04 PM CDT Narrative MEGAN MARTEL ([place]) - 12/12/2024 5:57 PM CDT Testing performed by [facility] ([phone]) Lotus Christiansen MD LAB MICROBIOLOGY - GENERAL ORDERABLES Final Result MEGAN MARTEL ([place]) 1 [facility] [place] [address] * Varicella Zoster IgG antibody Blood (12/11/2024 10:17 AM CDT) Pathologist [facility] VZV IgG Reactive Reactive Comment: Reactive: Results suggest response to immunization or prior exposure to the virus. Testing performed by: [facility], [address] [facility], [place]., [address] Blood 12/11/2024 10:1 7 AM CDT 12/11/2024 4:06 PM CDT Lotus Christiansen MD LAB MICROBIOLOGY - GENERAL ORDERABLES Final Result MEGAN MARTEL ([place]ARR[place]) 1 [facility] [address] * Hemoglobin A1c (12/11/2024 10:17 AM CDT) [facility] Hgb A1C 5.2 4.0 - 5.6 % Estimated Average Glucose 103 mg/dL MEGAN MARTEL ([place]ITHARRAL) Comment: The ADA recommends reporting an estimated Average Glucose (eAG) with all Hemoglobin A1c results using the equation derived from a study of 507 normal and diabetic adults. Minority populations were underrepresented and children were not included. (Diabetes Care 31:9534-7044, 2008). The eAG is not equivalent to a fasting glucose. Blood 12/11/2024 10:1 7 AM CDT 12/11/2024 1:50 PM CDT Lotus Christiansen MD LAB BLOOD ORDERABLE S Final Result MEGAN MARTEL ([place]) 1 [facility] [place] [address] * Hexosaminidase A and total (11/21/2024) Pathologist [facility] SCRIBED Mark Sachs negative Blood Lotus Christiansen MD LAB BLOOD ORDERABLE S Final Result * Aaron Disease, DNA (11/21/2024) Pathologist [facility] SCRIBED Aaron negative Lotus Christiansen MD LAB GENETIC TESTING Final Result * DNA AB,HIGH AVIDITY (11/21/2024) [facility] SCRIBED HBV DNA, Qual Negative Lotus Christiansen MD LAB BLOOD ORDERABLE S Final Result * ALPHA-THALASSEMIA EVAL (11/21/2024) [facility] SCRIBED Thalassemia negative Lotus Christiansen MD LAB BLOOD ORDERABLE S Final Result * SMA carrier screen (11/21/2024) [facility] SCRIBED SMA negative Result [facility] Lotus Christiansen MD LAB GENETIC TESTING Final Result * Fragile X mutation (11/21/2024) [facility] SCRIBED Fragile X negative Blood Lotus Christiansen MD LAB BLOOD ORDERABLE S Final Result * Cystic fibrosis diagnostic study (11/21/2024) [facility] SCRIBED CF negative Blood Result [facility] Lotus Christiansen MD LAB BLOOD ORDERABLE S Final Result * High Risk HPV DNA Detection with Genotyping (Molecular component) (11/11/2024 4:59 PM WELDING SPECIALIST) Pathologist [facility] HPV HR 16 Not Detected Not Detected [facility] Comment:Testing performed by : [facility], [address] [place] [address] HPV HR 18 Not Detected Not Detected [facility] Comment:Testing performed by : [facility], [address] [place] [address] HPV HR Non 16/18 Not Detected Not Detected MEGAN Comment: Interpretive Data Nucleic acid amplification for detection of high-risk Human Papilloma virus (HPV) is performed by the Stephon Jessica 6800 HPV test. This assay specifically detects HPV-16 and HPV-18 genotypes. The following HPV genotypes are detected as high-risk HPV: HPV-31, 33, 35, ,39, 45, 51, 52, 56, 58, 59, 66, and 68. This assay has been approved by the [place] Food and Drug Administration for detection of HPV in cervical specimens collected by a physician using an endocervical brush/spatula or cervical broom and placed in the ThinPrep Pap Test PreservCyt collection containers. The performance characteristics of this test have been verified by the [facility] Molecular Infectious Disease laboratory. Correlate with separately reported cytology results, as applicable. Interpretive data last revised 23 Testing performed by: [facility], [address] [place] [address]., [address] Endocervical 11/11/2024 4:59 PM WELDING SPECIALIST 11/12/2024 6:44 PM WELDING SPECIALIST Narrative [facility] - 11/13/2024 6:01 AM WELDING SPECIALIST Clinical history and diagnosis-> Number of vials->1 Testing type->Screening Last menstrual period (date if known)->08/25/2024 Menstrual status-> Lotus Christiansen MD LAB BODY FLUIDS AND STOOLS ORDERABLES Final Result MEGAN [id number] Department [place] [address] [facility] * N. gonorrhoeae/C. trachomatis Amplification Thin prep-Endocervical (11/11/2024 4:59 PM WELDING SPECIALIST) C. trachomatis Not Detected [facility] Comment:Testing performed by : [facility], [address] [place] [address]., [address] N. gonorrhoeae Not Detected MEGAN Comment: Interpretive Data This assay detects Chlamydia trachomatis and Neisseria gonorrhoeae by nucleic acid amplification testing (NAAT). This assay has been cleared by the [facility] Food and Drug administration. The performance characteristics of this test have been verified by the [facility] Molecular Infectious Disease laboratory. The performance characteristics of this test have not been evaluated in individuals less than 14 years of age. Current Interpretive Data was last revised on 2023. Testing performed by: [facility], [address] [place]., [address] Thin prep-Endocervica l (None) 11/11/2024 4:59 PM WELDING SPECIALIST 11/12/2024 6:44 PM WELDING SPECIALIST us Lotus Christiansen MD LAB MICROBIOLOGY - GENERAL ORDERABLES Final Result [facility] [address] Department [place] [address] [facility] * Drugs of Abuse Screen, Urine with Reflex Confirmation (11/11/2024 4:59 PM WELDING SPECIALIST) Amphetamine, ur Not Detected CutOff 500ng/mL Comment: Interpretive Data - Amphetamines: Samples containing greater than 500 ng/mL d-methamphetamine or other cross-reacting amphetamine compounds are reported as positive. Amphetamine immunoassays are subject to significant false positive rates due to cross-reactivity of non-amphetamine drugs. Confirmatory testing required for definitive results. Current Interpretive Data was last reviewed 2023. Barbiturates, ur Not Detected CutOff 200ng/mL MEGAN Comment: Interpretive Data - Barbiturates: Samples containing greater than 200 ng/mL secobarbital or other cross-reacting barbiturate compounds are reported as positive. False positive and false negative results are possible. Confirmatory testing required for definitive results. Current Interpretive Data was last reviewed 2023. Benzodiazepines, ur Not Detected CutOff 100ng/mL MEGAN Comment: Interpretive Data - Benzodiazepines: Samples containing greater than 100 ng/mL nordiazepam or other cross-reacting compounds are reported as positive. False positive and false negative results are possible. Confirmatory testing required for definitive results. Current Interpretive Data was last reviewed 2023. Cannabinoids, ur Not Detected CutOff 50 ng/mL MEGAN Comment: Interpretive Data - Cannabinoids: Samples containing greater than 50 ng/mL delta-9 THC -COOH or other cross- reacting compounds are reported as positive. False positive and false negative results are possible. Confirmatory testing required for definitive results. Current Interpretive Data was last reviewed 2023. Cocaine, ur Not Detected CutOff 150ng/mL [facility] Comment: Interpretive Data - Cocaine: Samples containing greater than 150 ng/mL benzoylecgonine or other cross- reacting compounds are reported as positive. False positive and false negative results are possible. Confirmatory testing required for definitive results. Current Interpretive Data was last reviewed 2023. Fentanyl, Ur Not Detected CutOff 5 ng/mL [facility] [facility] Comment: Interpretive Data - Fentanyl: Samples containing greater than 5 ng/mL norfentanyl, fentanyl, or other cross-reacting fentanyl compounds are reported as positive. False positive and false negative results are possible. Confirmatory testing required for definitive results. Current Interpretive Data was last reviewed 2024. Methadone, ur Not Detected CutOff 300ng/mL [facility] Comment: Interpretive Data - Methadone: Samples containing greater than 300 ng/mL d,l-methadone or other cross-reacting compounds are reported as positive. False positive and false negative results are possible. Confirmatory testing required for definitive results. Current Interpretive Data was last reviewed 2023. Opiates, ur Not Detected CutOff 300ng/mL [facility] Comment: Interpretive Data - Opiates: Samples containing greater than 300 ng/mL morphine or other cross-reacting compounds are reported as positive. False positive and false negative results are possible. Confirmatory testing required for definitive results. Current Interpretive Data was last reviewed 2023. Oxycodone, ur Not Detected CutOff 100ng/mL [facility] Comment: Interpretive Data - Oxycodone: Samples containing greater than 100 ng/mL oxycodone or other cross-reacting compounds are reported as positive. False positive and false negative results are possible. Confirmatory testing required for definitive results. Current Interpretive Data was last reviewed 2023. Phencyclidine, ur Not Detected CutOff 25 ng/mL [facility] Comment: Interpretive Data - Phencyclidine: Samples containing greater than 25 ng/mL phencyclidine or other cross-reacting compounds are reported as positive. False positive and false negative results are possible. Confirmatory testing required for definitive results. Current Interpretive Data was last reviewed 2023. Urine Creatinine 74 mg/dL [facility] Comment: Interpretive Data Urine Creatinine: < 10 mg/dL is extremely dilute = or > 10 but < 20 mg/dL is dilute = or > 20 mg/dL is normal Current Interpretive Data was last revised on 2017. Urine 11/11/2024 4:59 PM WELDING SPECIALIST 11/11/2024 5:08 PM WELDING SPECIALIST Narrative [facility] FRYE - 11/11/2024 8:14 PM WELDING SPECIALIST Drug of Abuse screening is performed by immunoassay for medical purposes only. This is not to be used for Pain Management purposes. If Detected, confirmation testing will be performed for Amphetamines, Cocaine, Fentanyl, Methadone, Opiates, Oxycodone or Phencyclidine. Lotus Christiansen MD LAB URINE ORDERABLE S Final Result MEGAN [id number] Department [place] [address] * (ABNORMAL) Urine culture Urine, clean voided (11/11/2024 4:59 PM WELDING SPECIALIST) Report Final Report: Greater than or equal to 100,000 colonies/mL of Escherichia coli (.) Comment:Testing performed by : [facility], [address] [place]., [address] Organism ESCHERICHIA COLI GISSELLEBOAZ Urine, clean voided 11/11/2024 4:59 PM WELDING SPECIALIST 11/11/2024 8:33 PM WELDING SPECIALIST Narrative MEGAN - 11/13/2024 4:13 PM WELDING SPECIALIST Testing performed by [facility] ([phone]) Organism Antibiotic Method Susceptibility Escherichia coli Ampicillin INTERPRETATION Resistant Escherichia coli Cefazolin INTERPRETATION Susceptible Escherichia coli Nitrofurantoin INTERPRETATION Susceptible Escherichia coli Gentamicin INTERPRETATION Susceptible Escherichia coli Trimethoprim with Sulfamethoxazole IN TERPRETATION Resistant Escherichia coli Meropenem INTERPRETATION Susceptible Escherichia coli Cefepime INTERPRETATION Susceptible Escherichia coli Ciprofloxacin INTERPRETATION Susceptible Escherichia coli Ceftazidime INTERPRETATION Susceptible Escherichia coli Ceftriaxone INTERPRETATION Susceptible Escherichia coli Piperacillin/Tazobactam INTERPRETATIO N Susceptible Escherichia coli Cephalexin INTERPRETATION Susceptible Escherichia coli Cefuroxime-axetil INTERPRETATION Susceptible Escherichia coli Cefdinir INTERPRETATION Susceptible us Lotus Christiansen MD LAB MICROBIOLOGY - GENERAL ORDERABLES Final Result [facility] [address] Department [place] [address] * Pap and High Risk HPV and Genotyping (Cytology Component) (11/11/2024 9:04 AM WELDING SPECIALIST) Thin prep (Pap test) 11/11/2024 9:04 AM WELDING SPECIALIST 11/12/2024 9:04 AM WELDING SPECIALIST Narrative PATHOLOGY - 11/16/2024 10:02 AM WELDING SPECIALIST [facility] Department of Pathology [address] [place] [id number] Final Report with Addendum Note to Patients: This report may contain a detailed description of human tissue sent by a health care provider to the laboratory for pathologic evaluation. The content of this report is essential for diagnosis and may provide important critical findings. This information may be unfamiliar to patients to review without a medical professional present. It is advised that the patient review this report in the presence of a health care provider who can answer questions and explain the details. Patient Name: SUNDAR ASH Address: [address] [place] [address] Gender: F : 1985 (Age: 39) Service: Location: [facility] : [id number] Hospital #: [id number] Patient Type: SPECIMEN Taken: 11/11/2024 Received: 11/12/2024 Accessioned:: 11/12/2024 Reported: 11/16/2024 Physician(s): Katiana Jc M.D. Diagnosis: SOURCE OF SPECIMEN SCREENING THIN PREP IMAGED PAP w/ HPV: STATEMENT OF ADEQUACY - Specimen satisfactory for interpretation; endocervical/transformation zone component absent or insufficient GENERAL CATEGORIZATION: - Negative for intraepithelial lesion or malignancy PRICE Samano(ASCP) Report Electronically Reviewed and Signed Out By PRICE Samano(ASCP) 11/16/2024 10:02:56Addenda: HPV Test Interpretation (Normal-Negative for High Risk HPV) HPV HR 16- Not detected HPV HR 18-Not detected HPV HR non 16/18- Not detected Interpretive Data Nucleic acid amplification for detection of high-risk Human Papilloma virus (HPV) is performed by the Stephon Jessica 6800 HPV test. This assay specifically detects HPV- 16 and HPV-18 genotypes. The following HPV genotypes are detected as high-risk HPV: HPV-31, 33, 35, 39, 45, 51, 52, 56, 58, 59, 66, and 68. This assay has been approved by the [place] Food and Drug Administration for detection of HPV in cervical specimens collected by a physician using an endocervical brush/spatula or cervical broom and placed in the ThinPrep Pap Test PreservCyt collection containers. The performance characteristics of this test have been verified by the [facility] Molecular Infectious Disease laboratory. Correlate with reported cytology results, as applicable. Interpretive data last revised 23 PRICE Samano(ASCP)Report Electronically Reviewed and Signed Out By PRICE Samano(ASCP) 11/13/2024 09:37:46 Specimen(s) Received: A: SCREENING THIN PREP IMAGED PAP w/ HPV Clinical History: Last Menstrual Period: 08/25/2024 Menstrual History: The Pap test is a screening test used to aid in the detection of cervical cancer and its precursors. It should not be the sole means by which malignant and premalignant lesions are diagnosed. Both false negative and false positive results may occur. It also has poor sensitivity for the detection of endometrial lesions and should not be used to evaluate suspected endometrial abnormalities. For these reasons it is most important to obtain Pap tests at regular intervals. The performance characteristics of some immunohistochemical stains, fluorescence in-situ hybridization tests and immunophenotyping by flow cytometry cited in this report (if any) were determined by the Surgical Pathology Department at [facility] as part of an ongoing quality control program and in compliance with federally mandated regulations drawn from the Clinical Laboratory Improvement Act of 1988 (CLIA '88). Some of these tests rely on the use of analyte specific reagents and are subject to specific labeling requirements by the [place] Food and Drug Administration. Such diagnostic tests may only be performed in a facility that is certified by the Department of Health and Human Services as a high complexity laboratory under CLIA '88. The FDA has determined that such clearance or approval is not necessary. This test is used for clinical purposes. It should not be regarded as investigational or for research. Nevertheless, federal rules concerning the medical use of analyte specific reagents require that the following disclaimer be attached to the report: This test was developed and its performance characteristics determined by the Surgical Pathology Department [facility]. It has not been cleared or approved by the [place]. [place]. Food and Drug Administration. Lotus Christiansen MD LAB CYTOLOGY ORDERA BLES Final Result PATHOLOGY [address] [place] [address] * US Ob Under 14 Weeks (11/10/2024 3:33 PM WELDING SPECIALIST) Anatomical Region Laterality Modality Abdomen N/A Ultrasound 11/10/2024 3:43 PM WELDING SPECIALIST Impressions 11/10/2024 4:04 PM WELDING SPECIALIST 1. There is a single intrauterine gestation at 10 weeks 4 days with EDC of 912th 25. 2. Normal pelvic anatomy. Narrative Procedure Note Lotus Christiansen MD - 11/10/2024 IMPRESSION: 1. There is a single intrauterine gestation at 10 weeks 4 days with EDCof 912th 25. 2. Normal pelvic anatomy. Lotus Christiansen MD IMG OB US PROCEDURE S Final Result from Last 3 Months Insurance [employer] [facility] Advance Directives For more information, please contact: [phone] * Full Code (Latest Code Status on File) Date Activated Date Inactivated Comments 07/30/2018 9:04 PM 08/01/2018 4:39 PM * Full Code Date Activated Date Inactivated Comments 07/30/2018 5:52 AM 07/30/2018 9:04 PM Full CPR in case of cardiopulmonary arrest Care Teams Driller And Broacher Relationship Specialty Start Date End Date No, Physician PCP - General 08/02/18
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
--- OUTSIDE RECORDS SUMMARY | 2025-01-17 13:30 | XMS_ITS | Referral Summary ---
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 Name Role Phone No, Physician Primary Care Provider [phone] Encounters Date Type Department Care Team Description 01/12/2025 10:30 AM CDT Ancillary Procedure [address] [phone] Screening, , for anatomic survey 01/12/2025 10:00 AM CDT Office Visit [address] [phone] Melanie Newman NP Encounter for supervision of other normal in second trimester (Primary Dx); 20 weeks gestation of 12/15/2024 11:09 AM CDT - 12/15/2024 11:59 PM [place] [address] Supervision of other normal , antepartum; Drug abuse during (HCC) Discharge Disposition: Discharge to home or self care 12/15/2024 11:00 AM CDT Office Visit [address] [phone] Lotus Christiansen MD Supervision of other normal , antepartum (Primary Dx); 16 weeks gestation of ; Drug abuse during (HCC); Acute cystitis without hematuria; Multigravida of advanced maternal age in first trimester; Screening, , for anatomic survey 12/11/2024 10:15 AM CDT Lab [address] Abnormal urine; Supervision of other normal , antepartum 11/25/2024 Telephone [place] [facility] [address] [phone] Lotus Christiansen MD Myriad Genetic results 11/20/2024 Telephone [place] [facility] [address] [phone] Lotus Christiansen MD My chart message 11/13/2024 [facility] [phone] Mckayla Perera RN Abnormal urine (Primary Dx) 11/11/2024 4:59 PM CUSTODIAN - 11/11/2024 11:59 PM CUSTODIAN [place] [address] Supervision of other normal , antepartum Discharge Disposition: Discharge to home or self care 11/10/2024 Documentation [facility] Warm Hand Off Program [address] [place], [place] [phone] Katelyn Kent 11/10/2024 Results Follow-Up [address] [phone] Lotus Christiansen MD 11/10/2024 3:00 PM CUSTODIAN [facility] [address] [phone] Encounter to establish gestational age using ultrasound 11/10/2024 Telephone [place] [facility] [address] [phone] Lotus Christiansen MD 11/10/2024 3:15 PM CUSTODIAN [facility] [address] [phone] Lotus Christiansen MD Supervision of other normal , antepartum (Primary Dx); Abnormal genetic test during ; History of back surgery; care for patient with recurrent loss, second trimester; History of gestational diabetes mellitus (GDM); H/O section; Tobacco use; Sterilization consult; Multigravida of advanced maternal age in first trimester; 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 These risk [...] positive Assessment & Plan (11/11/2024 2:29 PM CUSTODIAN): [facility] She is motivated to get her kids back. H/O section 11/10/2024 Assessment & Plan (11/10/2024 4:14 PM CUSTODIAN): Will plan for repeat at term Sterilization [...] cancer. Assessment & Plan (11/11/2024 2:27 PM CUSTODIAN): Wants btl. Will see if she needs tubal papers. Understands that it is permanent and that I will be taking as much of the tube as possible as the current theory is that this may decrease the risk for ovarian cancer. Will plan to do at the time of her c/s Tobacco use 11/10/2024 Assessment & Plan (11/10/2024 4:16 PM CUSTODIAN): The patient was encouraged to stop smoking. Techniques for smoking cessation were discussed to the patient's level of interest. History of back surgery 12/20/2019 Overview (12/20/2019): [ ] Recommend anesthesia consult in 3rd trimester Assessment & Plan (11/11/2024 2:23 PM CUSTODIAN): No metal in her back Had a spinal garcia with last spinal, but good pain relief care for patient w joaquim recurrent loss, second trimester 12/20/2019 Overview (12/20/2019): [...] IgG/IgM) Assessment & Plan (11/11/2024 2:27 PM CUSTODIAN): The pt is not sure how many [...] (2015) Assessment & Plan (11/10/2024 4:13 PM CUSTODIAN): Will send for hgba1c today Supervision of high-risk , unspecified trimester 12/17/2019 Overview (12/15/2024): [] Co-management vs. [] Full [facility] Care; Referring Provider: Teresita Odom [phone] [x] Dating Criteria: LMP 07/22/19. US 11/23/19 [...] [] MOC: [] Method of feeding: [] Black Top Machine Operator: [] PP Depression Discussed: 12/15/24 Cell free [...] restriction Assessment & Plan (11/10/2024 4:12 PM CUSTODIAN): She will do cell free dna testing this Low lying placenta nos or wi thout hemorrhage, third trimester 06/11/2018 11/10/2024 Overview (06/11/2018): Added automatically from request for surgery [id number] Immunizations Immunization Administration Dates Next Due Influenza, Quadrivalent, Spl it, Preservative Free, Intramuscular 08/01/2018 Tdap 07/30/2018 Social History Tobacco Use Types Packs/Day Years Used Date Smoking Tobacco: Every Day Cigarettes 0.5 19 Started: 2004; Last attempted to quit: 2023 Vaping Started: 2023 Smokeless Tobacco: Never Tobacco Cessation:Ready to Q uit: No; Counseling Given: Yes Alcohol Use Standard Drinks/Week Comments No 0 (1 standard drink = 0.6 oz pur e alcohol) [facility] Utilities Answer Date Recorded In the past 12 months has e electric, gas, oil, or water company threatened to shut off services in your [...] often do you attend chur ch or hindu services? More than 4 times per year 11/10/2024 Do you belong to any clubs o r organizations such as bahai groups, unions, fraternal or athletic groups, or [...] Date Recorded PHQ-2 Total Score 0 11/10/2024 [facility] Occupational Stress Questionnaire Answer [...] things needed for daily living? Yes 11/10/2024 [place] [facility] Depression Scale Answer Date Recorded [place] [facility] Depression Scale Total 7 11/10/2024 The thought [...] time in the past 12 m [facility], were you homeless or living in a half-way (including now)? No 11/10/2024 Estimated Date of [...] cm (5' 8 ) 11/10/2024 3:55 PM CUSTODIAN Body Mass Index 38.74 11/10/2024 3:55 PM CUSTODIAN Plan of Treatment Not on file Procedures Procedure Name Priority Date/Time Associated Diagnosis [...] DETECTION WITH GENOTYPING Routine 11/11/2024 4:59 PM CUSTODIAN Supervision of other normal , antepartum DRUGS OF ABUSE SCREEN, URINE WITH REFLEX CONFIRMATION Routine 11/11/2024 4:59 PM CUSTODIAN Supervision of other normal , antepartum URINE CULTURE Routine 11/11/2024 4:59 PM CUSTODIAN Supervision of other normal , antepartum N. GONORRHOEAE/C. TRACHOMATIS AMPLIFICATION Routine 11/11/2024 4:59 PM CUSTODIAN Supervision of other normal , antepartum PAP AND HIGH RISK HPV, REFLEX TO GENOTYPING Routine 11/11/2024 9:04 AM CUSTODIAN Supervision of other normal , antepartum US OB UNDER 14 WEEKS Schedule Routine, Read Routine (OP Routine) 11/10/2024 3:33 PM CUSTODIAN Encounter to establish gestational age using ultrasound from Last 3 Months Results * POCT OB urine short dip (glucose, protein, ketones) (01/12/2025 9:56 AM CDT) Glucose, ur, POC Negative Negative MG/DL Protein, ur, POC Negative Negative Ketones, ur, POC Negative Negative Lot Number [id number] Urine 01/12/2025 9:56 AM CDT Melanie Newman BATTERY LOADER POINT OF CARE TEST ORDERABL ES Final [...] 2023. Barbiturates, ur Not Detected CutOff 200ng/mL CERNER Comment: Interpretive Data - Barbiturates: Samples containing greater than 200 ng/mL secobarbital or other cross-reacting barbiturate compounds are reported as positive. False positive and false negative results are possible. Confirmatory testing required for definitive results. Current Interpretive Data was last reviewed 2023. Benzodiazepines, ur Not Detected CutOff 100ng/mL CERNER Comment: Interpretive Data - Benzodiazepines: Samples containing greater than 100 ng/mL nordiazepam or other cross-reacting compounds are reported as positive. False positive and false negative results are possible. Confirmatory testing required for definitive results. Current Interpretive Data was last reviewed 2023. Cannabinoids, ur Not Detected CutOff 50 ng/mL CERNER Comment: Interpretive Data - Cannabinoids: Samples containing greater than 50 ng/mL delta-9 THC -COOH or other cross- reacting compounds are reported as positive. False positive and false negative results are possible. Confirmatory testing required for definitive results. Current Interpretive Data was last reviewed 2023. Cocaine, ur Not Detected CutOff 150ng/mL CERNER Comment: Interpretive Data - Cocaine: Samples containing greater than 150 ng/mL benzoylecgonine or other cross- reacting compounds are reported as positive. False positive and false negative results are possible. Confirmatory testing required for definitive results. Current Interpretive Data was last reviewed 2023. Fentanyl, Ur Not Detected CutOff 5 ng/mL CERNER Comment: Interpretive Data - Fentanyl: Samples containing greater than 5 ng/mL norfentanyl, fentanyl, or other cross-reacting fentanyl compounds are reported as positive. False positive and false negative results are possible. Confirmatory testing required for definitive results. Current Interpretive Data was last reviewed 2024. Methadone, ur Not Detected CutOff 300ng/mL CERNER Comment: Interpretive Data - Methadone: Samples containing greater than 300 ng/mL d,l-methadone or other cross-reacting compounds are reported as positive. False positive and false negative results are possible. Confirmatory testing required for definitive results. Current Interpretive Data was last reviewed 2023. Opiates, ur Not Detected CutOff 300ng/mL MEGAN Comment: Interpretive Data - Opiates: Samples containing greater than 300 ng/mL morphine or other cross-reacting compounds are reported as positive. False positive and false negative results are possible. Confirmatory testing required for definitive results. Current Interpretive Data was last reviewed 2023. Oxycodone, ur Not Detected CutOff 100ng/mL MEGAN Comment: Interpretive Data - Oxycodone: Samples containing greater than 100 ng/mL oxycodone or other cross-reacting compounds are reported as positive. False positive and false negative results are possible. Confirmatory testing required for definitive results. Current Interpretive Data was last reviewed 2023. Phencyclidine, ur Not Detected CutOff 25 ng/mL MEGAN Comment: Interpretive Data - Phencyclidine: Samples containing greater than 25 ng/mL phencyclidine or other cross-reacting compounds are reported as positive. False positive and false negative results are possible. Confirmatory testing required for definitive results. Current Interpretive Data was last reviewed 2023. Urine Creatinine 32 mg/dL MEGAN Comment: Interpretive Data Urine Creatinine: < 10 mg/dL is extremely dilute = or > 10 but < 20 mg/dL is dilute = or > 20 mg/dL is normal Current Interpretive Data was last revised on 2017. Urine 12/15/2024 11:0 9 AM CDT 12/15/2024 8:16 PM CDT Narrative [facility] - 12/15/2024 9:01 PM CDT Drug of Abuse screening is performed by immunoassay for medical purposes only. This is not to be used for Pain Management purposes. If Detected, confirmation testing will be performed for Amphetamines, Cocaine, Fentanyl, Methadone, Opiates, Oxycodone or Phencyclidine. us Lotus Christiansen MD LAB URINE ORDERABLE S Final Result [facility] [id number] Department [place] [address] * POCT OB urine short dip (glucose, protein, ketones) (12/15/2024 11:03 AM CDT) Glucose, ur, POC Negative Negative MG/DL Protein, ur, POC Negative Negative Ketones, ur, POC Negative Negative Lot Number [id number] Urine 12/15/2024 11:0 3 AM CDT Lotus [...] 2017. Eosinophil pct 1.9 % CERNE R [facility] Comment: Interpretive Data Percent cell count reference ranges are not reported, since discordance with absolute values may lead to misinterpretation of CBC data. Current Interpretive Data was last revised on 2017. Basophil pct 0.3 % GISSELLENER [facility] ([place] Comment: Interpretive Data Percent cell count reference ranges are not reported, since discordance with absolute values may lead to misinterpretation of CBC data. Current Interpretive Data was last revised on 2017. Blood 12/11/2024 10:1 7 AM CDT 12/11/2024 1:50 PM CDT us Lotus Christiansen MD LAB BLOOD ORDERABLE S Final Result Performing Organization Address [facility]/ZIP Co de Phone Number MEGAN [facility] 1 [facility] [place] [address] * HIV 1/2 Antibody plus p24 Antigen Blood (12/11/2024 10:17 AM CDT) HIV 1/2 ab + p24 ag Nonreactive Nonreactive Comment: Nonreactive for HIV-1 antigen and HIV-1/HIV-2 antibodies. No laboratory evidence of HIV infection. If acute HIV infection is suspected, consider testing for HIV-1 RNA. Testing performed by: [facility], [address] [place] [address], [id number] Blood 12/11/2024 10:1 7 AM CDT 12/11/2024 5:15 PM CDT us Lotus Christiansen MD LAB MICROBIOLOGY - GENERAL ORDERABLES Final Result MEGAN [facility] 1 [facility] [place] [address] * (ABNORMAL) Urinalysis reflex to microscopic (12/11/2024 10:17 AM CDT) Color, ur Yellow Yellow Clarity, ur Turbid(A) Clear MEGAN [facility] ([place]) Specific gravity, ur 1.016 1.003 - 1.030 [...] tendency for uric acid stone formation. Source: [facility] Current Interpretive Data was last revised on [...] MD LAB URINE ORDERABLE S Final Result [facility] 1 [facility] Department [place] [address] * (ABNORMAL) CBC with auto differential (12/11/2024 [...] ([place]) MCV 88.7 81.3 - 96.4 fL [facility] ([place]) MCH 28.5 27.1 - 33.3 pg [facility] ([place]) MCHC 32.1(L) 32.3 - 35.7 g/dL [facility] ([place]) RDW CV 13.4 11.1 - 14.9 % [facility] ([place]) RDW SD 44.0 35.7 - 48.1 fL [facility] ([place]) NRBC abs 0.00 0.00 - 0.01 K/cumm [facility] ([place]) Blood 12/11/2024 10:1 7 AM CDT 12/11/2024 1:50 PM CDT Lotus Christiansen MD LAB BLOOD ORDERABLE S Final Result Performing Organization Address [facility] Co de Phone Number MEGAN [facility] ([place]) 1 [facility] [place] [address] * Hepatitis C antibody Blood (12/11/2024 10:17 [...] last revised on 2019. Testing performed by: [facility], [address] [place] [address], [place]., [address] Blood 12/11/2024 10:1 7 AM CDT 12/11/2024 5:14 PM CDT Lotsu Christiansen MD LAB MICROBIOLOGY - GENERAL ORDERABLES Final Result Performing Organization Address [facility] Co de Phone Number [facility]GAN [facility] ([place]) 1 [facility] [place] [address] * ABO/Rh (12/11/2024 10:17 AM CDT) ABO/Rh O Positive Blood 12/11/2024 10:1 7 AM CDT 12/11/2024 1:50 PM CDT Narrative [facility] ([place]) - 12/11/2024 2:52 PM CDT Has the patient had Daratumumab or Isatuximab in the past 6 months?->Unknown Witnessed by Arlene Bah us Lotus Christiansen MD LAB BLOOD BANK TEST ORDERABLES Final Result [facility] ([place]) 1 [facility] [place] [address] * (ABNORMAL) Vitamin D 25 hydroxy (12/11/2024 10:17 AM CDT) Pathologist [facility] Vitamin D 25-OH 19(L) 30 - 80 ng/mL Blood 12/11/2024 10:1 7 AM CDT 12/11/2024 1:50 PM CDT Lotus Christiansen MD LAB BLOOD ORDERABLE S Final Result [facility] ([place]) 1 [facility] [place] [address] * (ABNORMAL) Rubella IgG antibody Blood (12/11/2024 10:17 AM CDT) Rubella IgG Nonreactiv e(A) Comment: Nonreactive: No detectable antibody to rubella. Such individuals are presumed to be uninfected with rubella and to be susceptible to primary infection. Testing performed by: [facility], [address] [facility], [place]., [address] Blood 12/11/2024 10:1 7 AM CDT 12/11/2024 4:06 PM CDT Lotus Christiansen MD LAB MICROBIOLOGY - GENERAL ORDERABLES Final Result [facility] ([place]) 1 [place] [address] * RPR Blood (12/11/2024 10:17 AM CDT) RPR Nonreactive Nonreactive Comment:Testing performed by : [facility], [address] [place] [address], [id number] Blood 12/11/2024 10:1 7 AM CDT 12/11/2024 5:14 PM CDT Lotus Christiansen MD LAB MICROBIOLOGY - GENERAL ORDERABLES Final Result Performing Organization Address [facility] Co de Phone Number MEGAN [facility] ([place]) [address] [place] [address] * Hepatitis B Surface Antigen Blood (12/11/2024 10:17 AM CDT) HepBsAg Nonreactive Nonreactive Comment:Testing performed by : [facility], [address] [place] [address], [id number] Blood 12/11/2024 10:1 7 AM CDT 12/11/2024 5:14 PM CDT Lotus Christiansen MD LAB MICROBIOLOGY - GENERAL ORDERABLES Final Result Performing Organization Address City/[facility]/ZIP Co de Phone Number MEGAN MARTEL ([place]) 1 [facility] [place] [address] * Antibody screen (12/11/2024 10:17 AM CDT) Erin, indirect, Gel Interpretation Negative ABSC Blood 12/11/2024 10:1 7 AM CDT 12/11/2024 1:50 PM CDT Narrative [facility] ([place]) - 12/11/2024 2:52 PM CDT Has the patient had Daratumumab or Isatuximab in the past 6 months?->Unknown us Lotus Christiansen MD LAB BLOOD BANK TEST ORDERABLES Final Result [facility] ([place]) 1 [facility] [place] [address] * Urine culture Urine, clean voided (12/11/2024 10:17 AM CDT) Report Final Report: Less than 100,000 colonies/mL (clinically insignificant growth based on current clinical standards) Comment:Testing performed by : [facility], [address] [place] [address]., [id number] Organism (CLINICALLY INSIGNIFICANT GROWTH [facility] ([place]) Urine, clean voided 12/11/2024 10:17 AM CDT 12/11/2024 5:04 PM CDT Narrative [facility] ([place]) - 12/12/2024 5:57 PM CDT Testing performed by [facility] Microbiology Laboratory ([phone]) us Lotus Christiansen MD LAB MICROBIOLOGY - GENERAL ORDERABLES Final Result Performing Organization Address City/[facility]/ZIP Co de Phone Number [facility] ([place]) 1 [facility] [place] [address] * Varicella Zoster IgG antibody Blood (12/11/2024 10:17 AM CDT) VZV IgG Reactive Reactive Comment: Reactive: Results suggest response to immunization or prior exposure to the virus. Testing performed by: [facility], [address] [place] [address]., [id number] Blood 12/11/2024 10:1 7 AM CDT 12/11/2024 4:06 PM CDT Lotus Christiansen MD LAB MICROBIOLOGY - GENERAL ORDERABLES Final Result [facility] MART[facility] ([place]) 1 [place] [address] * Hemoglobin A1c (12/11/2024 10:17 AM CDT) Pathologist [facility] Hgb A1C 5.2 4.0 - 5.6 % Estimated Average Glucose 103 mg/dL MEGAN FLOR[facility]) Comment: The ADA recommends reporting an estimated Average Glucose (eAG) with all Hemoglobin A1c results using the equation derived from a study of 507 normal and diabetic adults. Minority populations were underrepresented and children were not included. (Diabetes Care 31:7990-8203, 2008). The eAG is not equivalent to a fasting glucose. Blood 12/11/2024 10:1 7 AM CDT 12/11/2024 1:50 PM CDT Lotus Christiansen MD LAB BLOOD ORDERABLE S Final Result [facility] M[facility] ([place]) 1 [facility] Department [place] [address] * Hexosaminidase A and total (11/21/2024) Pathologist [facility] SCRIBED Mark Sachs negative Blood Result [facility] Lotus Christiansen MD LAB BLOOD ORDERABLE S Final Result * Aaron Disease, DNA (11/21/2024) [facility] SCRIBED Aaron negative Result [facility] Lotus Christiansen MD LAB GENETIC TESTING Final Result * DNA AB,HIGH AVIDITY (11/21/2024) [facility] SCRIBED HBV DNA, Qual Negative Lotus Christiansen MD LAB BLOOD ORDERABLE S Final Result * ALPHA-THALASSEMIA EVAL (11/21/2024) [facility] SCRIBED Thalassemia negative Result [facility] Lotus Christiansen MD LAB BLOOD ORDERABLE S Final Result * SMA carrier screen (11/21/2024) [facility] SCRIBED SMA negative Result [facility] Lotus Christiansen MD LAB GENETIC TESTING Final Result * Fragile X mutation (11/21/2024) SCRIBED Fragile X negative Blood Lotus Christiansen MD LAB BLOOD ORDERABLE S Final Result * Cystic fibrosis diagnostic study (11/21/2024) SCRIBED CF negative Blood Lotus Christiansen MD LAB BLOOD ORDERABLE S Final Result * High Risk HPV DNA Detection with Genotyping (Molecular component) (11/11/2024 4:59 PM CUSTODIAN) HPV HR 16 Not Detected Not Detected [facility] Comment:Testing performed by : [facility], [address] [place] [address]., [id number] HPV HR 18 Not Detected Not Detected [facility] Comment:Testing performed by : [facility], [address] [place]., [address] HPV HR Non 16/18 Not Detected Not Detected [facility] Comment: Interpretive Data Nucleic acid amplification for [...] this test have been verified by the [facility] Molecular Infectious Disease laboratory. Correlate with separately reported cytology results, as applicable. Interpretive data last revised 23 Testing performed by: [facility], [address] [place]., [address] Endocervical 11/11/2024 4:59 PM CUSTODIAN 11/12/2024 6:44 PM CUSTODIAN Narrative [facility] - 11/13/2024 6:01 AM CUSTODIAN Clinical history and diagnosis-> Number of vials->1 Testing type->Screening Last menstrual period (date if known)->08/25/2024 Menstrual status-> Lotus Christiansen MD LAB BODY FLUIDS AND STOOLS ORDERABLES Final Result Performing Organization Address [facility] Co de Phone Number [facility] [address] [address] Department [place] [address] [facility] * N. gonorrhoeae/C. trachomatis Amplification Thin prep-Endocervical (11/11/2024 4:59 PM CUSTODIAN) [facility] C. trachomatis Not Detected [facility] Comment:Testing performed by : [facility], [address] [place] [address]., [id number] N. gonorrhoeae Not Detected [facility] Comment: Interpretive Data This assay detects Chlamydia trachomatis and Neisseria gonorrhoeae by nucleic acid amplification testing (NAAT). This assay has been cleared by the [place] Food and Drug administration. The performance characteristics of this test have been verified by the [facility] Molecular Infectious Disease laboratory. The performance characteristics of this test have not been evaluated in individuals less than 14 years of age. Current Interpretive Data was last revised on 2023. Testing performed by: [facility], [address] [place] [address]., [id number] Thin prep-Endocervica l (None) 11/11/2024 4:59 PM CUSTODIAN 11/12/2024 6:44 PM CUSTODIAN Lotus Christiansen MD LAB MICROBIOLOGY - GENERAL ORDERABLES Final Result Performing Organization Address [facility] Co de Phone Number [facility] [address] [address] Department [place] [address] [facility] * Drugs of Abuse Screen, Urine with Reflex Confirmation (11/11/2024 4:59 PM CUSTODIAN) [facility] Amphetamine, ur Not Detected CutOff 500ng/mL Comment: Interpretive Data - Amphetamines: Samples containing greater than 500 ng/mL d-methamphetamine or other cross-reacting amphetamine compounds are reported as positive. Amphetamine immunoassays are subject to significant false positive rates due to cross-reactivity of non-amphetamine drugs. Confirmatory testing required for definitive results. Current Interpretive Data was last reviewed 2023. Barbiturates, ur Not Detected CutOff 200ng/mL CERNER Comment: Interpretive Data - Barbiturates: Samples containing greater than 200 ng/mL secobarbital or other cross-reacting barbiturate compounds are reported as positive. False positive and false negative results are possible. Confirmatory testing required for definitive results. Current Interpretive Data was last reviewed 2023. Benzodiazepines, ur Not Detected CutOff 100ng/mL CERNER Comment: Interpretive Data - Benzodiazepines: Samples containing greater than 100 ng/mL nordiazepam or other cross-reacting compounds are reported as positive. False positive and false negative results are possible. Confirmatory testing required for definitive results. Current Interpretive Data was last reviewed 2023. Cannabinoids, ur Not Detected CutOff 50 ng/mL CERNER Comment: Interpretive Data - Cannabinoids: Samples containing greater than 50 ng/mL delta-9 THC -COOH or other cross- reacting compounds are reported as positive. False positive and false negative results are possible. Confirmatory testing required for definitive results. Current Interpretive Data was last reviewed 2023. Cocaine, ur Not Detected CutOff 150ng/mL CERNER Comment: Interpretive Data - Cocaine: Samples containing greater than 150 ng/mL benzoylecgonine or other cross- reacting compounds are reported as positive. False positive and false negative results are possible. Confirmatory testing required for definitive results. Current Interpretive Data was last reviewed 2023. Fentanyl, Ur Not Detected CutOff 5 ng/mL CERNER Comment: Interpretive Data - Fentanyl: Samples containing greater than 5 ng/mL norfentanyl, fentanyl, or other cross-reacting fentanyl compounds are reported as positive. False positive and false negative results are possible. Confirmatory testing required for definitive results. Current Interpretive Data was last reviewed 2024. Methadone, ur Not Detected CutOff 300ng/mL CERNER Comment: Interpretive Data - Methadone: Samples containing greater than 300 ng/mL d,l-methadone or other cross-reacting compounds are reported as positive. False positive and false negative results are possible. Confirmatory testing required for definitive results. Current Interpretive Data was last reviewed 2023. Opiates, ur Not Detected CutOff 300ng/mL [facility]GAN Comment: Interpretive Data - Opiates: Samples containing greater than 300 ng/mL morphine or other cross-reacting compounds are reported as positive. False positive and false negative results are possible. Confirmatory testing required for definitive results. Current Interpretive Data was last reviewed 2023. Oxycodone, ur Not Detected CutOff 100ng/mL [facility] Comment: Interpretive Data - Oxycodone: Samples containing greater than 100 ng/mL oxycodone or other cross-reacting compounds are reported as positive. False positive and false negative results are possible. Confirmatory testing required for definitive results. Current Interpretive Data was last reviewed 2023. Phencyclidine, ur Not Detected CutOff 25 ng/mL MEGAN Comment: Interpretive Data - Phencyclidine: Samples containing greater than 25 ng/mL phencyclidine or other cross-reacting compounds are reported as positive. False positive and false negative results are possible. Confirmatory testing required for definitive results. Current Interpretive Data was last reviewed 2023. Urine Creatinine 74 mg/dL [facility]GAN Comment: Interpretive Data Urine Creatinine: < 10 mg/dL is extremely dilute = or > 10 but < 20 mg/dL is dilute = or > 20 mg/dL is normal Current Interpretive Data was last revised on 2017. Urine 11/11/2024 4:59 PM CUSTODIAN 11/11/2024 5:08 PM CUSTODIAN Narrative [facility] - 11/11/2024 8:14 PM CUSTODIAN Drug of Abuse screening is performed by immunoassay for medical purposes only. This is not to be used for Pain Management purposes. If Detected, confirmation testing will be performed for Amphetamines, Cocaine, Fentanyl, Methadone, Opiates, Oxycodone or Phencyclidine. us Lotus Christiansen MD LAB URINE ORDERABLE S Final Result MEGAN [address] Department [place] [address] * (ABNORMAL) Urine culture Urine, clean voided (11/11/2024 4:59 PM CUSTODIAN) Report Final Report: Greater than or equal to 100,000 colonies/mL of Escherichia coli (.) Comment:Testing performed by : [facility], [address] [place]., [address] Organism ESCHERICHIA COLI [facility] Urine, clean voided 11/11/2024 4:59 PM CUSTODIAN 11/11/2024 8:33 PM CUSTODIAN Narrative [facility] - 11/13/2024 4:13 PM CUSTODIAN Testing performed by [facility] Microbiology Laboratory ([phone]) Organism Antibiotic Method Susceptibility Escherichia coli Ampicillin [...] INTERPRETATION Susceptible Escherichia coli Cefdinir INTERPRETATION Susceptible Lotus Christiansen MD LAB MICROBIOLOGY - GENERAL ORDERABLES Final Result [address] Department of Laboratories [place] [id number] * Pap and High Risk HPV and Genotyping (Cytology Component) (11/11/2024 9:04 AM CUSTODIAN) Thin prep (Pap test) 11/11/2024 9:04 AM CUSTODIAN 11/12/2024 9:04 AM CUSTODIAN Narrative PATHOLOGY - 11/16/2024 10:02 AM CUSTODIAN [facility] Department of Pathology [address] [place] [id number] Final Report with Addendum Note to [...] the details. Patient Name: SUNDAR ASH Address: [address] [place] [address] Gender: F : 1985 (Age: 39) Service: Location: N : [id number] [facility] #: [id number] Patient Type: SPECIMEN Taken: 11/11/2024 Received: 11/12/2024 [...] this test have been verified by the [facility] Molecular Infectious Disease laboratory. Correlate with reported [...] determined by the Surgical Pathology Department at [facility] as part of an ongoing manager quality program and in compliance with federally mandated [...] characteristics determined by the Surgical Pathology Department [facility]. It has not been cleared or approved by the U. S. Food and Drug Administration. us Lotus Christiansen MD LAB CYTOLOGY ORDERA BLES Final Result PATHOLOGY [address] [place] [address] * US Ob Under 14 Weeks (11/10/2024 3:33 PM CUSTODIAN) Anatomical Region Laterality Modality Abdomen N/A Ultrasound 11/10/2024 3:43 PM CUSTODIAN Impressions 11/10/2024 4:04 PM CUSTODIAN 1. There is a single intrauterine gestation at 10 weeks 4 days with EDC of 912th 25. 2. Normal pelvic anatomy. Narrative Procedure Note Lotus Christiansen MD - 11/10/2024 IMPRESSION: 1. There is a single intrauterine gestation at 10 weeks 4 days with EDCof 912th 25. 2. Normal pelvic anatomy. us Lotus Christiansen MD IMG OB US PROCEDURE S Final Result from Last 3 Months Insurance [facility] Member Subscriber Plan / Payer (Ef fective 2019-Present) Name:Sundar Ash Relation to Subscriber:Self Name:Sundar Ash Payer ID:[id number] (NAIC) Group ID:Not on file Type:MEDICAID RISK OTHER Address: [address] [place] [id number] [facility] Member Subscriber Plan / Payer (Ef fective 2020-Present) Name:Marlene Sundar Relation to Subscriber:Self Name:Sundar Ash Payer ID:[id number] (NAIC) Group ID:Not on file Type:MEDICAID RISK OTHER Address: [address] [place] [id number] [facility] Advance Directives For more information, please contact: [phone] * Full Code (Latest Code Status on File) Date Activated Date Inactivated Comments 07/30/2018 9:04 PM 08/01/2018 4:39 PM * Full Code Date Activated Date Inactivated Comments 07/30/2018 5:52 AM 07/30/2018 9:04 PM Full CPR in case of cardiopulmonary arrest 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
--- OUTSIDE RECORDS SUMMARY | 2025-01-17 13:30 | XMS_ITS ---
Author Organization [facility] Address [address] [place] [address] Care Team Providers Care Wheat Buyer Name Role Phone Mikey Wiledr Primary Care Provider [phone] Naila Rivera [phone] REASON FOR VISIT DISCHARGED FROM [facility]- Physical; currently cleared by OB Encounters Encounter Location Date Provider Diagnosis [address] [place] [address] 11/12/2024 Naila Rivera Plan Of Treatment No Information Progress Notes * Jessica ASHDOB:1985 (39 yo F)Acc No.[id number]:11/12/2024 UNLOCKED PROGRESS NOTE Patient: Jessica OROSCO Provider: Regan Rivera APRN :1985 A ge:39 Y S ex:Female Date:11/12/2024 [id number] Pcp:Mikey Wilder Subjective: * Chief Complaints: * 1 . DISCHARGED FROM [facility]- Physical; currently cleared by OB. * Medical History: Objective: * Vitals: Assessment: Plan: * Treatment: * * Electronic signature of Suha Rivera , [id number] on 01/17/2025 at 01:29 PM CDT Sign off status: Pending * Provider: Regan Rivera APRN Date: 0 11/12/2024 Generated for Printi ng/Faxing/eTransmitting on: 0 01/17/2025 01:29 PM CDT
--- OUTSIDE RECORDS SUMMARY | 2025-01-17 13:30 | XMS_ITS | Patient Health Record ---
Author Organization [facility] Address [address] [place] [address] Care Team Providers Care Medicare Contact Specialist Name Role Phone Mikey Wilder Primary Care Provider Naila Rivera Unavailable [phone] Ashia Martell Unavailable [phone] Reason For Referral No Information Encounters Encounter Location Date Provider Diagnosis [address] [place] [address] 10/29/2024 Mikey Wilder Plan Of Treatment No Information Insurance Providers Payer Name Payer Address Payer Phone Subscriber Number Group Number Insured Name Patient Relationship to Insured Coverage Start Date Coverage End Date [facility] Attn Claims Department [address] [place] [id number] Jessica Rosario Self - patient is the insured 5
--- NOTE | 2025-01-17 13:54 | ED.GENADULT ---
HPI - General Adult General Chief complaint: Upper Respiratory Infection Stated complaint: Fever/Cough Source: patient Mode of arrival: ambulatory Limitations: no limitations History of Present Illness HPI narrative: Pt presents for evaluation of sick symptoms for the past 2-3 days. She reports cough, sore throat, fever, chills, and SOB. She is currently , 21 weeks gestation. and currently under the care of OBGYN, Dr Christiansen. She denies any vaginal bleeding or abdominal pain. A few days ago she woke from sleep gasping for air. She states she has never been told she has periods of witnessed apnea. She does vape. Related Data Home Medications ?Medication ?Instructions ?Recorded ?Confirmed ?Last Taken ?Type buspirone 7.5 mg tablet mg 01/17/25 Unknown History hydroxyzine pamoate 50 mg capsule mg 01/17/25 Unknown History Allergies Allergy/AdvReac Type Severity Reaction Status Date / Time No Known Allergies Allergy Verified 01/17/25 13:40 Review of Systems Review of Systems: CONSTITUTIONAL: Reports fever and chills EYES: Denies visual changes, redness, or discharge. ENT: Reports sore throat. Denies rhinorrhea, congestion, or otalgia. CARDIOVASCULAR: Denies chest pain, palpitations, or edema. RESPIRATORY: Reports cough and SOB GASTROINTESTINAL: Denies abdominal pain, nausea, vomiting, or diarrhea. GENITOURINARY: Denies dysuria or hematuria. SKIN: Denies rash or itching. MUSCULOSKELETAL: Denies back pain, joint pain, or myalgia. NEUROLOGIC: Denies headache, numbness, dizziness, or weakness. PSYCHIATRIC: Denies anxiety or depression. [facility] Past Medical History Medical History Bronchitis Surgical History Surgical History History of back surgery Family History Family History Mother Family history non-contributory Social History Social History Smoking status: Current some day smoker Tobacco type: e-cigarettes/vaping Alcohol intake: current Alcohol use details: Occasional Substance use: never Living arrangements: with family Occupation/Education: occupation Gender identity (if verbalized by the patient): Female Sexual Orientation (if Verbalized by the Patient): Straight or Heterosexual Exam Narrative: GENERAL: Well-appearing, well-nourished, and in no acute distress. HEAD: Normocephalic, atraumatic. EYES: PERRLA and EOMI. ENT: Nares clear, no rhinorrhea or epistaxis. Mucous membranes moist. Oropharynx without tonsillar hypertrophy exudate or other lesions. Bilateral TMs pearly lucero nonbulging NECK: Supple. No adenopathy or masses. No carotid bruits or JVD CHEST: Clear to auscultation. No respiratory distress. No wheezes rales or rhonchi HEART: Rate 108. Regular rhythm. No murmur heard. Normal peripheral pulses. ABDOMEN: Soft, nontender, nondistended, normal active bowel sounds. EXTREMITIES: Normal range of motion. No edema. SKIN: Warm, dry, no rash. NEURO: No focal deficits. Alert and oriented x3. PSYCH: Normal mood and affect. Course Course Emergency Course: This is a 39 year old female here today for evaluation of sick symptoms. COVID, influenza, strep were all negative. We discussed risks versus benefits of chest x-ray. Through shared decision making opted to forego imaging. She has no adventitious lung sounds on exam. Recommend she not vape. Tylenol for fever. Dextromethorphan is generally considered safe in . She should follow-up with her OBGYN. Although she was tachycardic, she assures me this is her baseline. I reviewed several visits in the past which showed that her heart rate today is her baseline. She should go to the ER for difficulty breathing or worsening symptoms. Patient in agreement with plan of care. Level of Care: Express Care Visit Vital Signs Vital signs: Vital Signs Temperature 36.5 C 01/17/25 13:30 Pulse Rate 117 H 01/17/25 13:30 Respiratory Rate 18 01/17/25 13:30 Blood Pressure 127/87 01/17/25 13:30 Pulse Oximetry 98 01/17/25 13:30 Oxygen Delivery Room Air 01/17/25 13:30 Temperature 36.5 C 01/17/25 13:30 Pulse Rate 117 H 01/17/25 13:30 Respiratory Rate 18 01/17/25 13:30 Blood Pressure 127/87 01/17/25 13:30 Pulse Oximetry 98 01/17/25 13:30 Oxygen Delivery Room Air 01/17/25 13:30 Medical Decision Making Vital Signs Vital Signs: Vital Signs Temperature 36.5 C 01/17/25 13:30 Pulse Rate 117 H 01/17/25 13:30 Respiratory Rate 18 01/17/25 13:30 Blood Pressure 127/87 01/17/25 13:30 Pulse Oximetry 98 01/17/25 13:30 Oxygen Delivery Room Air 01/17/25 13:30 Temperature 36.5 C 01/17/25 13:30 Pulse Rate 117 H 01/17/25 13:30 Respiratory Rate 18 01/17/25 13:30 Blood Pressure 127/87 01/17/25 13:30 Pulse Oximetry 98 01/17/25 13:30 Oxygen Delivery Room Air 01/17/25 13:30 Lab Data Labs: Lab Results 01/17/25 Range/Units 13:54 POC Influenza A Ag Negative (Negative) POC Influenza B Ag Negative (Negative) POC SARS CoV-2 Ag Negative (Negative) POC Grp A Strep Screen Negative (Negative) Discharge Plan Discharge Clinical Impression: Acute viral syndrome Patient Disposition: Home Condition: Stable Instructions: Antibiotic Form, Upper Respiratory Infection (ED), Viral Syndrome (ED) Additional Instructions: YOU MAY TAKE TYLENOL FOR FEVER DEXTROMETHORPHAN THIS GENERALLY CONSIDERED IS SAFE DURING FOR COUGH. Patient Language: Korean Prescriptions: No Action hydroxyzine pamoate 50 mg capsule buspirone 7.5 mg tablet Follow-up/Referrals: Елена,Lotus Valverde MD [Non-Staff] - Stand Alone Forms: Work/School Release IP Time of Disposition: 14:04
[2025-01-17 13:57] LABS: EDCOVIDSCREEN Negative (Negative); EDINFLUASCREEN Negative (Negative); EDINFLUBSCREEN Negative (Negative); EDSTREPNEGPOS1 Negative (Negative)
== END 2025-01-17 14:09 | disposition home or self-care (01) ==
PROVIDERS: Emergency Provider Nurse Practitioner
DX: O98.512 Other viral diseases complicating pregnancy, second trimester (principal); B34.9 Viral infection, unspecified; Z3A.21 21 weeks gestation of pregnancy; Z20.822 Contact with and (suspected) exposure to COVID-19; O99.332 Smoking (tobacco) complicating pregnancy, second trimester; F17.290 Nicotine dependence, other tobacco product, uncomplicated
CPT/HCPCS: 87081; 87426; 87804; 87880; 99213; G0463